=== PATIENT | female | born 1965 | race Caucasian/White ===

== ENCOUNTER 2019-10-25 14:04 | Emergency (ER) | payer BC ==
--- NOTE | 2019-10-25 14:44 | UC ---
Complaint Female HPI - HPI Summary HPI Summary: 54 yo female with mild intermittent groin pain x 1 week no dysuria /urgency or frequency She comes in concerned that her urine smells strong She is having some vaginal spotting no itch or other d/c no back pain no f/c no n/v/d swelling or sores in vaginal area no URI symptoms no known COVID exposure - History Of Current Complaint Stated Complaint: URINARY Time Seen by Provider: 10/25/19 14:37 Hx Obtained From: Patient Onset/Duration: Gradual Onset, Lasting Days Timing: Intermittent, Lasting Hours Severity Initially: Mild Severity Currently: Mild Pain Intensity: 1 Pain Scale Used: 0-10 Numeric Character: Dull Aggravating Factor(s): Nothing Associated Signs And Symptoms: Positive: Vaginal Bleeding/Discharge - some spotting. Negative: Fever, Back Pain, Vaginal Discharge, Nausea, Vomiting(# Of Episodes =), Genital Swelling, Genital Blisters, Retained Foregin Body (Specify) Female Torso: 1 - pain here - Allergies/Home Medications Allergies/Adverse Reactions: Allergies Allergy/AdvReac Type Severity Reaction Status Date / Time No Known Allergies Allergy Verified 10/25/19 14:45 Home Medications: Home Medications Esomeprazole(NF) [NEXium(NF)] 20 mg PO DAILY 10/25/19 [History Confirmed ] Losartan TAB* [Cozaar TAB*] 25 mg PO DAILY 10/25/19 [History Confirmed 10/25/19] PMH/Surg Hx/FS Hx/Imm Hx Previously Healthy: Yes Cardiovascular History: Hypertension - Family History Known Family History: Positive: Hypertension - Social History Lives: With Family Smoking Status (MU): Never Smoked Tobacco Review of Systems All Other Systems Reviewed And Are Negative: Yes Constitutional: Positive: Negative Skin: Positive: Negative Eyes: Positive: Negative ENT: Positive: Negative Respiratory: Positive: Negative Cardiovascular: Positive: Negative Gastrointestinal: Positive: Abdominal Pain - right groin pain Genitourinary: Positive: Negative Motor: Positive: Negative Neurovascular: Positive: Negative Musculoskeletal: Positive: Negative Neurological/Mental Status: Positive: Negative Psychological: Positive: Negative Physical Exam Triage Information Reviewed: Yes Appearance: Well-Appearing, No Pain Distress, Well-Nourished Vital Signs Reviewed: Yes Eyes: Positive: Conjunctiva Clear ENT: Positive: Hearing grossly normal. Negative: Nasal congestion, Nasal drainage, Trismus, Muffled voice, Dental tenderness Dental Exam: Normal Neck: Positive: Supple, Nontender Respiratory: Positive: Lungs clear, Normal breath sounds, No respiratory distress, No accessory muscle use Cardiovascular: Positive: RRR, No Murmur Abdomen Description: Positive: Nontender, No Organomegaly, Soft. Negative: CVA Tenderness (R), CVA Tenderness (L), Hernia @ Musculoskeletal: Positive: ROM Intact, No Edema Neurological: Positive: Alert Psychological Exam: Normal Skin Exam: Normal Diagnostics - Laboratory Lab Results: UA +++ rbcs Complaint Female Dx - Differential Dx/Diagnosis Provider Diagnosis: Right groin pain Discharge ED - Sign-Out/Discharge Documenting (check all that apply): Patient Departure All imaging exams completed and their final reports reviewed: No Studies - Discharge Plan Condition: Stable Disposition: HOME Patient Education Materials: Groin Pain (ED) Referrals: Adia Mcnamara PA [Primary Care Provider] - 4 Days Additional Instructions: Your urine did not look suspicious for a UTI A urine culture is pending TO ER FOR NEW OR WORSENING SYMPTOMS I suggest you see your provider later this week if not better - Billing Disposition and Condition Condition: STABLE Disposition: Home
[2019-10-25 14:45] VITALS: BP 126/88
== END 2019-10-25 15:18 | disposition home or self-care (01) ==
LOC: UCCORT 14:04
DX: R10.31 Right lower quadrant pain (principal); N93.9 Abnormal uterine and vaginal bleeding, unspecified; I10 Essential (primary) hypertension; Z79.899 Other long term (current) drug therapy
CPT/HCPCS: 81003; 87086; 99211; G0463